=== PATIENT | female | born 1985 | race Two or more races ===

== ENCOUNTER 2023-10-19 05:32 | Inpatient (IN) ==
--- NOTE | 2023-10-09 10:14 | History & Physical Report ---
Date of Service October 09, 2023 Assessment & Plan (1) Previous delivery affecting , antepartum: Plan: Plan for repeat section. Does NOT desire tubal. Reviewed consent in office in detail with aid of rigger apprentice phone. Questions answered. Discussed increased risk of injury d/t h/o x 2, due to scar tissue. History of Present Illness Chief Complaint: scheduled repeat section Primary Care Provider: [facility] 37yo with EDC 10/24/23 scheduled for repeat section. Previous Section affecting pregnancyx2 in [place]. C/S SCHEDULED FOR 10/19/[address] WONG AND DR. HANEY ASSIST speaks only Qatari and will require a upper leather cutter AMA--nsts at 36 weeks. Hematology referral- Iron transfusions Allergies Allergy/AdvReac Type Severity Reaction Status Date / Time No Known Allergies Allergy Verified 10/09/23 08:35 Home Medications Medication Instructions Recorded Confirmed Type ondansetron 4 mg disintegrating 4 mg PO Q6H PRN nausea and 04/09/23 10/09/23 Rx tablet vomiting #20 tabs miconazole nitrate 2 % vaginal 1 appful vaginal ONCE PRN itching 07/07/23 Rx cream (Monistat 7) #45 grams Patient History Medical History No pertinent past medical history Surgical History (Updated 03/05/23 @ 13:45 by Enid Tran) Hx of section Family History (Updated 03/05/23 @ 13:25 by Enid Tran) Brother Arthritis Social History Smoking Status: Never smoker Do You Dip or Chew Tobacco: No; Preferred Language: Qatari marital status: marital status details: Ms. Vazquez (helps pt translate) [phone] Current Living Situation: Spouse Current Living Situation Comment: lives with spouse, mother in law, 2 children, current occupational status: unemployed Feels Safe at Home: Yes Review of Systems All systems reviewed & are unremarkable except as noted in HPI & below Physical Exam Constitutional: WD/WN, vitals as above Respiratory: normal respiratory effort, lungs clear to auscultation no respiratory distress Cardiovascular: Rate/Rhythm: regular rate and regular rhythm Gastrointestinal (Abdomen): Inspection/Auscultation: abdomen normal to inspection Percussion/Palpation: abdomen soft; abdomen nontender Gravid. No s/s chorio or abruption. Skin: no rashes, warm and dry Psychiatric: A+Ox3, euthymic affect Coding Level of Care Code None Diagnoses Previous delivery affecting , antepartum O34.219
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
[2023-10-19] MEDS ORDERED: SODIUM CHLORIDE 0.9% 250 ML IV PRN (05:40)
[2023-10-19] MEDS: LACTATED RINGER'S 1,000 ML IV SCH (05:55)
[2023-10-19 06:17] LABS: Basophils # (auto) 0.04 K/uL (0.00-0.20); Basophils % (auto) 0.4 %; Eosinophils # (auto) 0.08 K/uL (0.00-0.50); Eosinophils % (auto) 0.9 %; Hematocrit (blood only) 35.6 % (37.0-47.0); Hemoglobin 11.1 g/dl (12.0-16.0); Immature Granulocytes # (auto) 0.05 K/uL (0.01-0.20); Immature Granulocytes % (auto) 0.5 %; Lymphocytes # (auto) 2.19 K/uL (1.20-3.40); Lymphocytes % (auto) 23.8 %; Mean Corpuscular Hemoglobin 25.2 pg (25.0-34.0); Mean Corpuscular Hgb Conc 31.2 g/dL (32.0-36.0); Mean Corpuscular Volume 80.9 fL (80.0-100.0); Mean Platelet Volume 9.6 fL (9.4-12.4); Monocytes # (auto) 0.47 K/uL (0.11-0.59); Monocytes % (auto) 5.1 %; Neutrophils # (auto) 6.36 K/uL (1.40-6.50); Neutrophils % (auto) 69.3 %; Platelet Count 326 K/uL (130-400); RDW Coefficient of Variation 22.9 % (11.5-14.5); RDW Standard Deviation 65.4 fL (36.4-46.3); White Blood Count 9.19 K/ul (4.8-10.8)
[2023-10-19 06:39] LABS: Anisocytosis Present; Echinocytes 1+; Ovalocytes 1+
[2023-10-19] MEDS ORDERED: PHENYLEPHRINE HCL 10 MG/ML VIAL ONE (06:59)
[2023-10-19] MEDS ORDERED: KETOROLAC 30 MG/ML VIAL ONE (06:59)
[2023-10-19] MEDS ORDERED: ONDANSETRON INJ 2 MG/ML 2 ML VIAL ONE (06:59)
[2023-10-19] MEDS ORDERED: PHENYLEPHRINE 100MCG/ML 10ML SYR IV ONE (06:59)
[2023-10-19] MEDS ORDERED: fentaNYL citrate PF 100 MCG/2 ML VIAL ONE (06:59)
[2023-10-19] MEDS ORDERED: OXYTOCIN 10 UNITS/ML VIAL ONE (06:59)
[2023-10-19] MEDS ORDERED: MoRPHine SULFATE PF 1 MG/ML 10 ML AMP/VIAL ONE (07:00)
--- NOTE | 2023-10-19 07:19 | History & Physical Bridge Note ---
Date of Service October 19, 2023 History & Physical Bridge Note I have examined the patient, reviewed the History & Physical and in the interval since the performance of the History & Physical I have noted the following changes of clinical significance: no changes noted
[2023-10-19] MEDS ORDERED: NALBUPHINE HCL 5 MG in SYRINGE 0 ML IV PRN (07:31)
[2023-10-19] MEDS ORDERED: NALOXONE HCL 0.08 MG in SYRINGE 1.8 ML IV PRN (07:31)
[2023-10-19] MEDS ORDERED: diphenhydrAMINE 50 MG/ML VIAL IV PRN (07:31)
[2023-10-19] MEDS ORDERED: ePHEDrine sulfate 50 MG/ML AMP IV PRN (07:31)
[2023-10-19] MEDS ORDERED: LACTATED RINGER'S 500 ML IV PRN (07:31)
[2023-10-19] MEDS ORDERED: NALOXONE HCL 1 MG in SODIUM CHLORIDE 0.9% 1,000 ML IV PRN (07:31)
[2023-10-19] MEDS ORDERED: NALOXONE HCL 0.4 MG/1 ML VIAL/CARP IV PRN (07:31)
[2023-10-19] MEDS ORDERED: ONDANSETRON INJ 2 MG/ML 2 ML VIAL IV PRN (07:31)
[2023-10-19] MEDS ORDERED: ACETAMINOPHEN 1,000 MG/100 ML VIAL IV PRN (07:31)
[2023-10-19] MEDS ORDERED: PROMETHAZINE HCL 6.25 MG in SODIUM CHLORIDE 0.9% 50 ML IV PRN (07:31)
[2023-10-19] MEDS ORDERED: HYDROmorphone INJ 0.5 MG/0.5 ML SYR IV PRN (07:31)
[2023-10-19] MEDS ORDERED: DC INTRASPINAL MORPHINE SCH (07:45)
[2023-10-19] MEDS ORDERED: NO NARCOTICS OR SEDATIVES SCH (07:45)
[2023-10-19] MEDS: ceFAZolin 2000MG 2,000 MG/15 ML SYR IV SCH (07:47)
[2023-10-19] MEDS: CITRIC ACID/SODIUM CITRATE 15 ML UDC PO SCH (07:48)
[2023-10-19 08:46] LABS: Base Excess Cord Arterial Bld -1.7 mEq/L (-9-1.8); CO2 Cord Arterial Blood 63 mmHg (39.1-73.5); HCO3 Cord Arterial Blood 27 mmol/L (19.7-28.5); Oxygen Sat Cord Arterial Blood < 60.0 % (<60); PO2 Cord Arterial Blood < 20 mmHg (4.1-31.7); pH Cord Arterial Blood 7.24 (7.1-7.38)
[2023-10-19 08:47] LABS: Cord Venous Blood HCO3 24 mmol/L (18.4-26.8); Cord Venous Blood PCO2 46 mmHg (30.4-57.2); Cord Venous Blood PO2 31 mmHg (14.1-43.3); Cord Venous Blood pH 7.33 (7.20-7.44); O2 Saturation Cord Venous Bld 61.9 % (<68)
[2023-10-19] MEDS ORDERED: ePHEDrine sulfate 50 MG/5 ML SYR ONE (08:55)
--- NOTE | 2023-10-19 09:11 | Operative Report ---
PG Post Operative Report Pre & Post Diagnosis Operation Date: 10/19/23 07:30 Pre-Op Diagnosis: 1. History of section x2 Post-Op Diagnosis: 1. same I identified the patient and participated in the time-out.: Yes Procedure Operation Date: 10/19/23 07:30 Actual Procedures p Repeat Low transverse Section in by Dr. Maldonado and Dr. Boss assisting. Delivery of viable male infant on 10/19/23 at 0815. - Aleksandra Maldonado DO Surgeon Aleksandra Maldonado, Sales And Events Coordinator Skylar Boss MD Estimated Blood Loss 500 Findings Consistent with Post-Op Diagnosis Viable male , Apgars 8/9. Weight pending, please see nursery records. Uterus, ovaries normal. Fallopian tubes normal - there is a 1.5cm simple paratubal cyst in right mesosalpinx. Specimens Placenta, cord blood, cord gas Drains keane clear yellow Anesthesia Type Spinal Complications none Disposition Accompanied Patient To Recovery: Yes Disposition: L&D Indications 37yo @ 39 09/23, history of section x 2, AMA. Description of Procedure The patient was seen in her labor and delivery room, risks benefits and alternatives to surgery were reviewed. Informed consent obtained. Questions were answered. She was taken to the operating room, spinal anesthesia was administered. She was then prepared and draped in the usual sterile fashion in the supine position with a leftward tilt. Timeout was confirmed. Discussed skin incision with patient - she has had vertical skin incision x 2, wide scar. Option for Pfanenstiel vs repeat vertical - thinking that may be able to avoid mid-abdominal adhesive disease by going below it with abdominal entry via Pfannenstiel, and the incision may heal better. Patient agreed. A Pfannenstiel skin incision was made with a scalpel, and carried through to the underlying layer of fascia. Fascia was nicked at midline, and this incision was extended bilaterally. The superior aspect of the fascial incision was grasped with David clamps x2, elevated off the underlying rectus abdominis muscles, and dissected sharply and bluntly. In similar fashion, the inferior aspect of the fascial incision was dissected. The rectus abdominis muscles were , and the peritoneum was entered bluntly digitally. This was extended bilaterally. The bladder flap was taken down carefully using Metzenbaum scissors. Using a new scalpel, a low transverse uterine incision was created. Clear amniotic fluid noted. The infant was delivered from a cephalic presentation. The head delivered, followed by shoulders and body. Spontaneous cry on the field. The cord was doubly clamped and cut, and the infant was handed off to the waiting pusher operator. A segment was retained for cord gases. Cord blood was obtained. The placenta was delivered spontaneously intact. The uterus was exteriorized, and cleared of all clots and debris. The hysterotomy incision was reapproximated using 0 Vicryl in a running locked stitch. A second layer of the same suture was used to imbricate the incision. Posterior uterus was evaluated and normal. The uterus was returned to the abdomen, and gutters were cleared of clots and debris. Excellent hemostasis was observed. The fascial incision was reapproximated using 0 Vicryl in a running stitch. The subcutaneous tissue was irrigated, and reapproximated using 2-0 plain gut in a running stitch. The skin was reapproximated using 4-0 Vicryl in a running subcuticular stitch. Steri-Strips and a bandage were applied. The patient tolerated the procedure well, and will be taken to the recovery area in stable and good condition. I attest to the content of the Intraoperative Record and any orders documented therein. Any exceptions are noted below. OB Procedure Charges 79301
[2023-10-19] MEDS ORDERED: MAGNESIUM HYDROXIDE SUSP 30 ML UDC PO PRN (09:27)
[2023-10-19] MEDS ORDERED: LACTATED RINGER'S 1,000 ML IV SCH (09:27)
[2023-10-19] MEDS ORDERED: BENZOCAINE 20% SPRY 85 APPLN/85 GM CAN EXT PRN (09:27)
[2023-10-19] MEDS ORDERED: HYDROCORTISONE ACETATE 25 MG SUPP PR PRN (09:27)
[2023-10-19] MEDS ORDERED: SENNA 8.6 MG TAB PO PRN (09:27)
--- NOTE | 2023-10-19 09:38 | Anesthesiology Progress Note ---
Date of Service October 19, 2023 Anesthesia Post Procedure Vital Signs Vital Signs: Temp Pulse Resp BP Pulse Ox 10/19/23 09:35 75 105/61 99 10/19/23 09:30 71 99 10/19/23 09:25 73 109/64 99 10/19/23 09:20 77 100 10/19/23 09:15 71 107/55 L 10/19/23 09:14 82 100 10/19/23 09:13 73 93 10/19/23 09:09 100 10/19/23 09:09 61 10/19/23 09:09 67 113/60 10/19/23 09:06 71 91/48 L 10/19/23 09:05 72 81/49 L 10/19/23 09:04 97.5 F L 16 10/19/23 09:04 74 88/52 L 100 10/19/23 07:04 70 116/68 10/19/23 05:56 97.5 F L 18 10/19/23 05:46 79 119/63 Transfer of Care Handoff Completed per policy Notes Mental Status: alert / awake / arousable and participated in evaluation Patient Amnestic to Procedure: Yes Nausea / Vomiting: adequately controlled Pain: adequately controlled Airway Patency, RR, SpO2: stable & adequate BP & HR: stable & adequate Hydration State: stable & adequate Neuraxial Anesthesia: was administered and sensory block is resolving Anesthetic Complications: no major complications apparent and Pt Satisfied with anesthetic care
[2023-10-19] MEDS: SODIUM CHLORIDE 0.9% 1,000 ML IV SCH (14:44)
[2023-10-19] MEDS: MoRPHine SULFATE PF 1 MG/ML 10 ML AMP/VIAL INT SPINAL ONE (14:44)
[2023-10-19] MEDS: DIPHTHER/TETAN/PERTUS Vaccine (Tdap, Adol/Adult) 0.5mL IM ONE (14:45)
[2023-10-19] MEDS: OXYTOCIN 30 UNITS/LR 1,003 ML IV SCH (15:25)
[2023-10-19] MEDS: SIMETHICONE 80 MG CHEW PO SCH (15:26)
[2023-10-19] MEDS: KETOROLAC 30 MG/ML VIAL IV PRN (15:35)
[2023-10-19] MEDS: DOCUSATE SODIUM 100 MG CAP PO SCH (21:10)
[2023-10-20] MEDS ORDERED: diphenhydrAMINE Capsule 25 MG CAP PO PRN (01:31)
[2023-10-20] MEDS ORDERED: ONDANSETRON INJ 2 MG/ML 2 ML VIAL IV PRN (01:31)
[2023-10-20] MEDS ORDERED: PROMETHAZINE HCL 25 MG in SODIUM CHLORIDE 0.9% 50 ML IV PRN (01:31)
[2023-10-20] MEDS ORDERED: KETOROLAC 30 MG/ML VIAL IV PRN (01:31)
[2023-10-20] MEDS ORDERED: diphenhydrAMINE 50 MG/ML VIAL IV PRN (01:31)
[2023-10-20 05:55] LABS: Basophils # (auto) 0.03 K/uL (0.00-0.20); Basophils % (auto) 0.3 %; Eosinophils # (auto) 0.09 K/uL (0.00-0.50); Hematocrit (blood only) 29.8 % (37.0-47.0); Hemoglobin 9.3 g/dl (12.0-16.0); Immature Granulocytes # (auto) 0.04 K/uL (0.01-0.20); Immature Granulocytes % (auto) 0.4 %; Lymphocytes # (auto) 1.99 K/uL (1.20-3.40); Lymphocytes % (auto) 21.1 %; Mean Corpuscular Hemoglobin 25.4 pg (25.0-34.0); Mean Corpuscular Hgb Conc 31.2 g/dL (32.0-36.0); Mean Corpuscular Volume 81.4 fL (80.0-100.0); Mean Platelet Volume 9.2 fL (9.4-12.4); Monocytes # (auto) 0.49 K/uL (0.11-0.59); Monocytes % (auto) 5.2 %; Platelet Count 262 K/uL (130-400); RDW Coefficient of Variation 22.7 % (11.5-14.5); RDW Standard Deviation 66.4 fL (36.4-46.3); Red Blood Count 3.66 M/uL (4.20-5.40); White Blood Count 9.44 K/ul (4.8-10.8)
[2023-10-20 06:27] LABS: Anisocytosis Present
[2023-10-20] MEDS: IBUPROFEN 600 MG TAB PO PRN (06:31)
[2023-10-20] MEDS: oxyCODONE/ACETAMINOPHEN 5mg/325mg TAB PO PRN (06:33)
--- NOTE | 2023-10-20 07:01 | Obstetrical Progress Note ---
Date of Service <Sim Sotomayor MD - Last Filed: 10/20/23 09:01> October 20, 2023 Assessment & Plan <Sim Sotomayor MD - Last Filed: 10/20/23 09:01> (1) S/P : Plan 37 yo , status post on 10/19/23, 500 mL of EBL. - Pt doing well clinically. Feels well today. Eating well, voiding well, ambulating well. Pain somewhat poorly controlled with PRN pain meds.Patient experiencing MEDINA and incisional site pain - Routine care -- OOB, ambulation, diet progression as tolerated Vital Signs reviewed and WNL. (Tmax at 36.7) w/ low BPs, 91/53 this morning, followed by 100/64, continue to monitor. Give fluids if necessary. Hemoglobin Reviewed. 11.1 (10/19/23) 9.3 (today). Blood Type: A+, GBS-, Rubella Immune. Encourage ambulation, monitor and control pain with Motrin PRN, resume regular diet, monitor lochia. Breast feeding encouraged. After discharge will have 6 week follow-up with Dr. Maldonado. <Funmi Irby MD, FACOG - Last Filed: 10/21/23 07:54> (1) S/P : Subjective <Sim Sotomayor MD - Last Filed: 10/20/23 09:01> Ambulation: ambulating normally Voiding: keane catheter in place (Keane catheter removed early this morning; has not voided independently yet) Passing Gas:: No Diet Tolerance:: regular diet Lochia:: Moderate Feeding Type:: breast feeding Current Pain Level(1-10): 8 (incisional area) Constitutional: + body aches and + fatigue; no fever or no sweats Respiratory: no cough, no chest congestion or no dyspnea Cardiovascular: no chest pain, no dyspnea or no palpitations Neurologic: + headache(s); no tingling, no numbness or no dizziness Physical Exam <Sim Sotomayor MD - Last Filed: 10/20/23 09:01> Constitutional WD/WN, vitals as above Respiratory normal respiratory effort, lungs clear to auscultation Cardiovascular RRR, no murmur, no edema Extremities: no calf tenderness Psychiatric A+Ox3, euthymic affect Results & Data <Sim Sotomayor MD - Last Filed: 10/20/23 09:01> Vital Signs (Past 12 Hours) Vital Signs Temp Pulse Resp BP Pulse Ox O2 Del Method 10/20/23 02:30 36.7 C 73 18 91/53 L 96 Room Air 10/20/23 01:30 18 96 10/20/23 00:00 18 97 10/19/23 23:03 18 97 10/19/23 23:03 36.5 C 73 18 90/56 L 97 Room Air 10/19/23 22:05 18 98 10/19/23 21:15 18 98 10/19/23 20:00 18 98 10/19/23 19:20 37.4 C 83 18 99/60 L 99 Room Air 10/19/23 19:04 20 98 Supervising Physician <Funmi Irby MD, FACOG - Last Filed: 10/21/23 07:54> Co-Signing Physician Notes Resident Physician Supervision Note: I interviewed and examined the patient. Discussed with Dr. Menchaca and agree with findings and plan as documented in the note. Any exceptions or clarifications are listed here: [None] Documented By: Funmi Irby MD, FACOG
[2023-10-20] MEDS: PRENATAL VITAMIN 1 TAB PO SCH (17:29)
[2023-10-20] MEDS: FERROUS SULFATE 325 MG TAB PO SCH (17:29)
[2023-10-20] MEDS: bisacodyL 5 MG TABEC PO SCH (20:43)
--- NOTE | 2023-10-21 05:45 | Obstetrical Progress Note ---
Date of Service <Sim Sotomayor MD - Last Filed: 10/21/23 07:33> October 21, 2023 Assessment & Plan <Sim Sotomayor MD - Last Filed: 10/21/23 07:33> (1) S/P : (2) Headache: Plan 37 yo , status post on 10/19/23, 500 mL of EBL. - Pt doing well clinically, with the exception of a persistent headache of more than 24 hours now. Patient does not endorse any photophobia, sound sensitivity, nausea, or vomiting. Also does not feel any tingling or numbness on either side of the face, any facial weakness, also without any concerning findings on her neuro exam. Her BP's have been low-normal with diastolic pressures in the low 60s, systolic pressures in the low 90s. Encouraged patient to hydrate better today, with both water and electrolyte-rich fluids (Powerade, etc). May consider a neurology consult if patient's MEDINA does not improve. -Eating well, voiding well, ambulating well. Abdominal, incisional-site pain and all pain besides MEDINA pain well controlled with PRN pain meds. - Routine care -- OOB, ambulation, diet progression as tolerated Vital Signs reviewed and WNL. (Tmax at 36.7) w/ low BPs, 91/53 this morning, followed by 100/64, continue to monitor. Patient advised to increase fluid intake, as noted above Hemoglobin Reviewed. 11.1 (10/19/23) 9.3 (yesterday), today's Hgb pending. Blood Type: A+, GBS-, Rubella Immune. Encourage ambulation, monitor and control pain with Motrin PRN, resume regular diet, monitor lochia. Breast feeding encouraged. After discharge will have 6 week follow-up with Dr. Maldonado. <Lanie Anand MD - Last Filed: 10/21/23 08:32> (1) S/P : (2) Headache: Subjective <Sim Sotomayor MD - Last Filed: 10/21/23 07:33> Ambulation: ambulating normally Voiding: no voiding problems Passing Gas:: Yes Diet Tolerance:: regular diet Lochia:: Small Feeding Type:: breast feeding Current Pain Level(1-10): 8 (MEDINA pain; other pain well controlled w/ pain meds) Constitutional: + fatigue; no fever or no sweats Eyes: no diplopia, no eye pain, no photophobia, no seeing flashes or no worsening vision Ear, Nose, Mouth, Throat: + nasal congestion and + nasal discharge; no dizziness Respiratory: no cough, no chest congestion or no dyspnea Cardiovascular: no chest pain, no dyspnea or no palpitations Gastrointestinal: + constipation (still has not had BM since ); no abdominal pain, no nausea, no vomiting or no diarrhea/loose stools Genitourinary (female): no dysuria or no difficulty urinating Neurologic: + headache(s); no loss of sensation, no tingling, no numbness, no paresthesia or no dizziness Physical Exam <Sim Sotomayor MD - Last Filed: 10/21/23 07:33> Constitutional WD/WN, vitals as above Respiratory normal respiratory effort, lungs clear to auscultation Cardiovascular RRR, no murmur, no edema Extremities: no calf tenderness Gastrointestinal (Abdomen) Inspection/Auscultation: + abdominal surgical incision (non-erythematous, non- edematous) Percussion/Palpation: + abdomen tender (mild tenderness around incision site); abdomen not rigid Neurologic awake; not confused Speech / Cognition: normal speech Cranial Nerves: PERRL, normal accommodation, EOM intact bilaterally, normal facial strength and tongue midline Psychiatric A+Ox3, euthymic affect Results & Data <Sim Sotomayor MD - Last Filed: 10/21/23 07:33> Vital Signs (Past 12 Hours) Vital Signs Temp Pulse Resp BP Pulse Ox O2 Del Method 10/21/23 01:25 36.5 C 63 18 97/61 L 96 Room Air 10/20/23 20:37 36.3 C L 67 18 106/66 97 Room Air Supervising Physician <Lanie Anand MD - Last Filed: 10/21/23 08:32> Co-Signing Physician Notes Resident Physician Supervision Note: I interviewed and examined the patient. Discussed with Dr. Sotomayor and agree with findings and plan as documented in the note. Any exceptions or clarifications are listed here: POD2 s/p rLTCS. Meeting postop milestones. Has noted MEDINA that began yesterday. per nursing, she told them yesterday that the ibuprofen and percocet were helping both abd pain and the MEDINA pain yesterday. However overnight, she said it wasn't helping. Drank 3-4 of the tumblers of water yesterday. Didn't note much change with coffee. Denies light/sound s ensitivity so don't think migraine. Denies congestion/sinus/allergy symptoms. Does not worsen in different positions. Tried ice this AM on forehead and just received reglan with her meds. BP is normal and denies s/s PET. Has normal sensation and muscle strength of face. Wasn't sure how much sleep she actually got, thinks got a couple hours for sure this AM. Discussed increasing hydration and caffeine, rest as suspect dehydration is component. If not improving, consider medicine consult Documented By: Lanie Anand MD
[2023-10-21] MEDS: METOCLOPRAMIDE HCL 10 MG TABLET PO STA (06:17)
[2023-10-21 07:34] LABS: Hematocrit (blood only) 32.7 % (37.0-47.0)
[2023-10-21] MEDS ORDERED: bisacodyL 10 MG SUPP PR PRN (09:12)
[2023-10-21] MEDS: BUTALBITAL/ACETAMIN/CAFFEINE TAB PO STA (09:20)
[2023-10-21] MEDS ORDERED: BUTALBITAL/ACETAMIN/CAFFEINE TAB PO STA (10:44)
[2023-10-21] MEDS ORDERED: BUTALBITAL/ACETAMIN/CAFFEINE TAB PO PRN (15:47)
--- NOTE | 2023-10-22 06:32 | Obstetrical Progress Note ---
Date of Service <Sim Sotomayor MD - Last Filed: 10/22/23 08:37> October 22, 2023 Assessment & Plan <Sim Sotomayor MD - Last Filed: 10/22/23 08:37> (1) S/P : (2) Headache: Plan 37 yo , status post on 10/19/23, 500 mL of EBL. - Pt doing well clinically, and patient's intense headache of longer than 24 hours has now resolved. Patient endorsed quick resolution after taking the Fioricet yesterday morning. Her BP's have continued to be low-normal with diastolic pressures in the low 60s, systolic pressures in the low 90s. Although encouraged patient to hydrate better today, with both water and electrolyte-rich fluids (Powerade, etc), it's likely patient's MEDINA was either a tension headache or a first time migraine MEDINA considering its rapid resolution with one dose of Fioricet. -Eating well, voiding well, ambulating well. Abdominal, incisional-site pain and all pain besides MEDINA pain well controlled with PRN pain meds. - Routine care -- OOB, ambulation, diet progression as tolerated Vital Signs reviewed and WNL. (Tmax at 36.7) w/ low BPs, 99/62 this morning. Patient advised to increase fluid intake, as noted above. Hemoglobin Reviewed. 11.1 (10/19/23) 10.0 (yesterday), trending back up. Pt with no signs or symptoms of anemia. Blood Type: A+, GBS-, Rubella Immune. Encourage ambulation, monitor and control pain with Motrin PRN, resume regular diet, monitor lochia. Breast feeding encouraged. After discharge will have 6 week follow-up with Dr. Maldonado. Patient counselled on discharge instructions as she will be going home today. <Ashlyn Vivar MD, FACOG - Last Filed: 10/22/23 08:40> (1) S/P : (2) Headache: Subjective <Sim Sotomayor MD - Last Filed: 10/22/23 08:37> Ambulation: ambulating normally Voiding: no voiding problems Passing Gas:: Yes Diet Tolerance:: regular diet Lochia:: Small Feeding Type:: bottle feeding (bottle feed w/ breast milk pumping) Current Pain Level(1-10): 3 (pelvic area w/ walking) Constitutional: + fatigue; no fever or no sweats Eyes: no diplopia, no eye pain, no photophobia, no seeing flashes or no worsening vision Ear, Nose, Mouth, Throat: + nasal congestion and + nasal discharge; no dizziness Respiratory: no cough, no chest congestion or no dyspnea Cardiovascular: no chest pain, no dyspnea or no palpitations Gastrointestinal: + constipation (still has not had BM since ); no abdominal pain, no nausea, no vomiting or no diarrhea/loose stools Genitourinary (female): no dysuria or no difficulty urinating Neurologic: no loss of sensation, no tingling, no numbness, no paresthesia or no dizziness Physical Exam <Sim Sotomayor MD - Last Filed: 10/22/23 08:37> Constitutional WD/WN, vitals as above Respiratory normal respiratory effort, lungs clear to auscultation Cardiovascular RRR, no murmur, no edema Extremities: no calf tenderness Gastrointestinal (Abdomen) Inspection/Auscultation: + abdominal surgical incision (non-erythematous, non- edematous) Percussion/Palpation: + abdomen tender (mild tenderness around incision site); abdomen not rigid Neurologic awake; not confused Speech / Cognition: normal speech Cranial Nerves: PERRL, normal accommodation, EOM intact bilaterally, normal facial strength and tongue midline Psychiatric A+Ox3, euthymic affect Results & Data <Sim Sotomayor MD - Last Filed: 10/22/23 08:37> Vital Signs (Past 12 Hours) Vital Signs Temp Pulse Resp BP O2 Del Method 10/22/23 00:15 36.4 C L 66 16 99/62 L Room Air Supervising Physician <Ashlyn Vivar MD, FACOG - Last Filed: 10/22/23 08:40> Co-Signing Physician Notes Resident Physician Supervision Note: I interviewed and examined the patient. Discussed with Dr. Sotomayor and agree with findings and plan as documented in the note. Any exceptions or clarifications are listed here: [None] Documented By: Ashlyn Vivar MD, FACOG
--- NOTE | 2023-10-27 16:57 | Discharge Summary ---
Date of Service October 27, 2023 Admission HPI Per Admitting Provider 37yo with EDC 10/24/23 scheduled for repeat section. Previous Section affecting pregnancyx2 in [place]. C/S SCHEDULED FOR 10/19/[address] MAL[address]O AND DR[address] HANEY ASSIST speaks only Dutch and will require a sap ppm consultant AMA--nsts at 36 weeks. Hematology referral- Iron transfusions Admission Exam (Per Admitting) Constitutional WD/WN, vitals as above Respiratory normal respiratory effort, lungs clear to auscultation no respiratory distress Cardiovascular Rate/Rhythm: regular rate and regular rhythm Gastrointestinal (Abdomen) Inspection/Auscultation: abdomen normal to inspection Percussion/Palpation: abdomen soft; abdomen nontender Skin no rashes, warm and dry Psychiatric A+Ox3, euthymic affect Discharge Data Consultations 10/19/23 05:38 Consult Anesthesiology Stat Procedures Performed Operation Date: 10/19/23 07:30 Actual Procedures p Section in LD by Dr. Maldonado and Dr. Haney assisting. Delivery of viable male infant on 10/19/23 at 0815.(Bilateral) - Aleksandra Maldonado, Hospital Course (1) S/P : Admitted for scheduled repeat CS, routine postop course, DC home POD3. Please see chart for further details. (2) Headache: Plan 37 yo , status post on 10/19/23, 500 mL of EBL. - Pt doing well clinically, and patient's intense headache of longer than 24 hours has now resolved. Patient endorsed quick resolution after taking the Fioricet yesterday morning. Her BP's have continued to be low-normal with diastolic pressures in the low 60s, systolic pressures in the low 90s. Although encouraged patient to hydrate better today, with both water and electrolyte-rich fluids (Powerade, etc), it's likely patient's MEDINA was either a tension headache or a first time migraine MEDINA considering its rapid resolution with one dose of Fioricet. -Eating well, voiding well, ambulating well. Abdominal, incisional-site pain and all pain besides MEDINA pain well controlled with PRN pain meds. - Routine care -- OOB, ambulation, diet progression as tolerated Vital Signs reviewed and WNL. (Tmax at 36.7) w/ low BPs, 99/62 this morning. Patient advised to increase fluid intake, as noted above. Hemoglobin Reviewed. 11.1 (10/19/23) 10.0 (yesterday), trending back up. Pt with no signs or symptoms of anemia. Blood Type: A+, GBS-, Rubella Immune. Encourage ambulation, monitor and control pain with Motrin PRN, resume regular diet, monitor lochia. Breast feeding encouraged. After discharge will have 6 week follow-up with Dr. Maldonado. Patient counselled on discharge instructions as she will be going home today. Coding Level of Care Code None Diagnoses S/P Z98.891 Headache R51.9
== END 2023-10-22 14:15 | disposition home or self-care (01) | DRG 788 ==
LOC: 4S1 05:32 → EDSTATUS 07:30 → 4E2 11:34